=== PATIENT | female | born 1975 | race African-American/Black ===

== ENCOUNTER 2017-11-29 08:25 | Emergency (ER) | payer MEDICAID, OTHER ==
[~2017-11-29] VITALS: Ht 160 cm; Wt 81.0 kg
[2017-11-29] MEDS ORDERED: METHYLPREDNISOLONE SOD SUCC 125 MG/2 ML VIAL IM ONE (10:30)
[2017-11-29 11:38] VITALS: BP 122/74
== END 2017-11-29 11:40 | disposition home or self-care (01) ==
LOC: ER 08:43
DX: J45.901 Unspecified asthma with (acute) exacerbation (principal); R03.0 Elevated blood-pressure reading, without diagnosis of hypertension; F32.9 Major depressive disorder, single episode, unspecified
CPT/HCPCS: 71045; 81025; 99283; J2930

== ENCOUNTER 2018-05-31 02:36 | Emergency (ER) | payer MEDICAID ==
[~2018-05-31] VITALS: Ht 160 cm; Wt 83.0 kg
[2018-05-31] MEDS ORDERED: ALBU05 NEB (02:55)
[2018-05-31] MEDS ORDERED: PREDNISONE 20MG TABLET PO STA (03:11)
[2018-05-31] MEDS ORDERED: IPRATROPIUM/ALBUTEROL 0.5-3(2.5)MG/3ML NEB HHN ONE (03:15)
[2018-05-31] MEDS ORDERED: AZITHROMYCIN 500 MG TABLET PO ONE (03:15)
[2018-05-31 04:51] VITALS: BP 125/69
== END 2018-05-31 04:53 | disposition home or self-care (01) ==
LOC: ER 02:36
DX: J45.901 Unspecified asthma with (acute) exacerbation (principal); R09.3 Abnormal sputum; Z98.890 Other specified postprocedural states; Z79.899 Other long term (current) drug therapy
CPT/HCPCS: 71045; 94640; 99283; J7512; J7620; Z7610